=== PATIENT | female | born 1960 | race African-American/Black ===

== ENCOUNTER 2018-08-11 05:52 | Inpatient (IN) ==
--- NOTE | 2018-08-06 17:42 | EKG Report ---
Test Performed on : 08/06/2018 5:16:10 PM Test Reason : PAT Blood Pressure : / mmHG Vent. Rate : 078 BPM Atrial Rate : 078 BPM P-R Int : 186 ms QRS Dur : 078 ms QT Int : 360 ms P-R-T Axes : 054 024 027 degrees QTc Int : 410 ms Normal sinus rhythm. Possible Left atrial enlargement Cannot rule out Anterior infarct , age undetermined Abnormal ECG No previous ECGs available Confirmed by Robson GRAY, Dionicio Green ([id number]) on 08/07/2018 5:09:15 PM
[2018-08-06 17:58] LABS: URINE SOURCE CLEAN CATCH
[2018-08-06 18:02] LABS: BASO# 0.03 X1000 (0.0-0.2); BASO% 0.5 % (0.0-0.8); EOS% 1.6 % (0.0-10.0); HEMATOCRIT 39.3 % (37.0-47.0); HEMOGLOBIN 12.8 g/dL (12.0-16.0); LYMPH# 3.04 X1000 (1.2-3.4); MCH 28.5 PG (27-31); MCHC 32.6 g/dL (33-37); MCV 87.5 FL (81-99); MONO# 0.46 X1000 (0.11-0.59); MONO% 7.3 % (1.7-9.3); MPV 9.9 FL (7.4-10.4); NEUT% 42.6 % (42.2-75.2); PLT 377 X1000 (130-400); RBC 4.49 XMIL (4.2-5.4); RDW 13.1 % (11.5-14.5); WBC 6.33 X1000 (4.8-10.8)
[2018-08-06 18:04] LABS: BILIRUBIN URINE NEGATIVE (NEGATIVE); BLOOD URINE NEGATIVE (NEGATIVE); COLOR YELLOW; GLUCOSE URINE NEGATIVE (NEGATIVE); KETONE URINE NEGATIVE (NEGATIVE); SP GRAVITY URINE 1.025; TURBIDITY URINE CLEAR (CLEAR)
[2018-08-06 18:05] LABS: INR 0.97; LEUKOCYTES URINE SMALL (NEGATIVE); NITRITE URINE NEGATIVE (NEGATIVE); PH URINE 5.5; PROTEIN URINE NEGATIVE (NEGATIVE); PROTIME 13.6 Seconds (11.0-16.0); UROBILINOGEN URINE NORMAL (NORMAL)
[2018-08-06 18:06] LABS: PTT 30.9 Seconds (22.3-41.8)
[2018-08-06 18:07] LABS: UR EPITHELIAL CELLS <10 /HPF (<10); URINE BACTERIA NEGATIVE /HPF; URINE RBC <10 /HPF (<10); URINE WBC <10 /HPF (<10)
[2018-08-06 18:20] LABS: AGAP 12; BUN 20 mg/dL (8-22); CALCIUM 9.7 mg/dL (8.8-10.2); CHLORIDE 99 mmol/L (98-107); COSMO 282; CREATININE 0.8 mg/dL (0.5-0.9); ESTIMATED GFR > 60; GLUCOSE 94 mg/dL (70-104); POTASSIUM 3.6 mmol/L (3.5-5.1); SODIUM 140 mmol/L (136-145); TCO2 29 mmol/L (25-35)
[2018-08-06 18:22] LABS: HEMOGLOBIN A1C 5.8 % (4.8-6.0)
[2018-08-11] MEDS ORDERED: REGLAN ONE (06:14)
[2018-08-11] MEDS ORDERED: COLACE ONE (06:14)
[2018-08-11] MEDS ORDERED: PEPCID ONE (06:14)
[2018-08-11] MEDS ORDERED: KEFZOL 1 GM/D5W 2 GM/100 ML IVPB ONE (06:15)
[2018-08-11] MEDS ORDERED: LR 1,000 ML ONE (06:15)
[2018-08-11] MEDS ORDERED: LYRICA ONE (06:15)
[2018-08-11] MEDS ORDERED: VANCOMYCIN ONE (06:53)
[2018-08-11] MEDS ORDERED: DURAMORPH ONE (06:53)
[2018-08-11] MEDS ORDERED: MARCAINE 0.25% PF ONE (06:53)
[2018-08-11] MEDS ORDERED: TORADOL ONE (06:53)
[2018-08-11] MEDS ORDERED: EXPAREL 1.3% ONE (06:54)
[2018-08-11] MEDS ORDERED: CYKLOKAPRON 1,000 MG/NS 1,000 MG/100 ML IVPB ONE ×2 (06:54→06:55)
[2018-08-11] MEDS ORDERED: SODIUM CHLORIDE 0.9% ONE (06:54)
[2018-08-11] MEDS ORDERED: NEOSPORIN G.U. IRRIGANT ONE (06:55)
[2018-08-11] MEDS ORDERED: DIPRIVAN 1% 500 MG/50 ML BOTTLE ONE (06:56)
[2018-08-11] MEDS ORDERED: DECADRON ONE (06:57)
[2018-08-11] MEDS ORDERED: XYLOCAINE-MPF 2% ONE (06:57)
[2018-08-11] MEDS ORDERED: FENTANYL ONE (06:59)
[2018-08-11] MEDS ORDERED: VERSED ONE (06:59)
[2018-08-11] MEDS ORDERED: OFIRMEV 1000 MG/ISOTONIC SOLN 1,000 MG/100 ML BOTTLE ONE (07:32)
[2018-08-11] MEDS ORDERED: ZOFRAN ONE (07:58)
[2018-08-11] MEDS ORDERED: EPHEDRINE ONE (08:20)
[2018-08-11 08:21] LABS: URINE SOURCE CATH
[2018-08-11 08:24] LABS: BILIRUBIN URINE NEGATIVE (NEGATIVE); BLOOD URINE NEGATIVE (NEGATIVE); COLOR YELLOW; GLUCOSE URINE NEGATIVE (NEGATIVE); KETONE URINE NEGATIVE (NEGATIVE); LEUKOCYTES URINE NEGATIVE (NEGATIVE); NITRITE URINE NEGATIVE (NEGATIVE); PH URINE 5.5; PROTEIN URINE NEGATIVE (NEGATIVE); SP GRAVITY URINE 1.016; TURBIDITY URINE CLEAR (CLEAR); UROBILINOGEN URINE NORMAL (NORMAL)
[2018-08-11 08:47] LABS: UR EPITHELIAL CELLS <10 /HPF (<10); URINE BACTERIA NEGATIVE /HPF; URINE RBC <10 /HPF (<10); URINE WBC <10 /HPF (<10); URINE YEAST PRESENT
[2018-08-11] MEDS ORDERED: NS 1,000 ML ONE (09:57)
[2018-08-11] MEDS ORDERED: ZOFRAN ODT PO PRN (11:00)
[2018-08-11] MEDS ORDERED: MILK OF MAGNESIA PO PRN (11:00)
[2018-08-11] MEDS ORDERED: OXY IR PO PRN ×2 (11:00)
[2018-08-11] MEDS ORDERED: AMBIEN PO PRN (11:00)
[2018-08-11] MEDS ORDERED: MORPHINE IV PRN ×3 (11:00)
--- NOTE | 2018-08-11 13:28 | OPERATIVE NOTE ---
PROCEDURE DATE : 08/11/2018 PREOPERATIVE DIAGNOSIS: Right knee degenerative joint disease. POSTOPERATIVE DIAGNOSIS: Right knee degenerative joint disease. PROCEDURE PERFORMED: Right total knee arthroplasty using [facility] size 6 femoral component, size 6 tibial baseplate, a 13 mm articular insert and a 32 mm patellar component. ANESTHESIA: Spinal. SURGEON: Jd Hook MD MINGLE OPERATOR: Margaret Chandra PA-C. She was present throughout the case, and her assistance was critical for exposure, placement of the implants and closure. The case could not have been completely successfully without her assistance. BLOOD LOSS: Minimal. TOURNIQUET TIME: Approximately 1-1/2 hours. DESCRIPTION OF PROCEDURE: The patient was brought to the operative suite and placed in supine position. After successful administration of general anesthesia, a well-padded tourniquet was placed on the right proximal thigh. Right lower extremity was prepped and draped in usual sterile fashion. Leg was exsanguinated. Tourniquet insufflated to 350 torr. A longitudinal incision was made beginning at the superior pole patella and extended distally to the tibial tuberosity. A medial arthrotomy was then made, and the medial capsule was elevated off of the medial tibial plateau. The ACL, PCL, medial meniscus, and lateral meniscus were excised. A drill was entered in the center of distal femur. Intramedullary guide was placed. Distal cutting block was pinned into place. Distal cut was made with oscillating saw. Marginal osteophytes were removed with a rongeur. Attention was then directed to the tibia. A drill was entered in the center of the tibia. Intramedullary guide was placed. Alignment was checked with drop álvaro referencing off the anterior cortex tibia and the second ray of the foot and taking 3 mm off the low side of the tibia which in this case was laterally. The tibial cutting block was pinned in place. The articular surface of the tibial plateau was removed with oscillating saw. Marginal osteophytes were removed with a rongeur. The knee was taken down into extension. Any residual medial and lateral meniscus were excised. The flexion extension gaps were checked and balanced at 13 mm. We set it at 14 mm, and that made is 23 mm in flexion to account for the posterior condyles of the femoral component. Once this was set and rotation was set, it was pinned into place. The femur was sized to a size 6. A size 6 cutting block was pinned into place, and the anterior cuts, chamfer cuts and posterior condylar cuts were made with oscillating saw. Marginal osteophytes were removed with a rongeur. Box cutting block was pinned into place. Box cut was made with box osteotome and oscillating saw. Posterior condylar osteophytes were removed with a curved osteotome and rongeur. The drill hole for the femur was irrigated with normal saline containing irrigant and then suctioned, and the hole was plugged with a piece of bone from the chamfer of the femur. Attention was directed to the tibia. The tibia was sized to a size 6. Size 6 guide was used with a fin punch. The tibial trial, femoral trial and 14 mm articular insert were placed and taken through a range of motion and found to have excellent alignment, balancing and range of motion. It was slightly tight. Therefore, we decided to place a 13 on the definitive implant. Attention was directed to the patella, and 9 mm of the articular surface of the patella were removed with the oscillating saw. Patella sized to size 32. A size 32 guide was used to drill peg holes. The lateral facet was chamfered 30 to 45 degrees. Patella trial was placed and taken through range of motion. Found have excellent patella tracking. All trials were then removed. The knee was copiously irrigated and dried, being certain all bone debris was removed. The tibial component, femoral component, and patellar component were cemented in place, excess cement being removed with the [place]. Once the cement had hardened, excess cement was again removed with osteotome. The knee was again copiously irrigated and dried, being certain all bone and cement debris removed. The trial articular insert was removed. The knee was copiously infiltrated with Exparel, including posterior capsule, anterior capsule, medial and lateral collateral ligaments, anterior musculature, and subcutaneous tissue. The definitive 13 mm articular surface was then locked into place. A drain was placed, exiting superolaterally and buried in the lateral gutter. The tourniquet was deflated. Hemostasis was obtained with electrocautery. The knee was again copiously irrigated with normal saline containing irrigant and Vashe irrigation. The medial arthrotomy was then closed with a 0 V-Loc and #1 Vicryl, then the skin edge approximated with 2-0 Vicryl. Skin was closed with a Prineo. A sterile dressing was applied. The patient tolerated the procedure well without complication. At the end the procedure, all counts correct x2. The patient was transferred to the recovery room in stable condition. cc: Jd Hook MD [facility]
[2018-08-11] MEDS: ULTRAM PO SCH ×2 (14:50→20:18)
[2018-08-11] MEDS: TYLENOL PO SCH ×3 (14:51→23:46)
[2018-08-11] MEDS: KEFZOL 2 GM/D5W 2 GM/50 ML IVPB IV SCH ×2 (14:57→23:30)
[2018-08-11] MEDS: NS 1,000 ML IV SCH ×2 (14:57→20:19)
[2018-08-11] MEDS ORDERED: KEFZOL 1 GM/D5W 1 GM/50 ML IVPB IV SCH (15:30)
[2018-08-11] MEDS: PERIDEX MT SCH (20:17)
[2018-08-11] MEDS: LYRICA PO SCH (20:17)
[2018-08-11] MEDS: COLACE PO SCH (20:18)
[2018-08-12] MEDS: NS 1,000 ML IV SCH (01:55)
[2018-08-12] MEDS: TYLENOL PO SCH ×2 (03:27→09:27)
[2018-08-12] MEDS: ULTRAM PO SCH ×2 (03:28→09:28)
[2018-08-12 06:26] LABS: AGAP 10; BUN 13 mg/dL (8-22); CALCIUM 8.8 mg/dL (8.8-10.2); CHLORIDE 103 mmol/L (98-107); COSMO 283; CREATININE 0.7 mg/dL (0.5-0.9); ESTIMATED GFR > 60; GLUCOSE 121 mg/dL (70-104); POTASSIUM 4.7 mmol/L (3.5-5.1); SODIUM 141 mmol/L (136-145); TCO2 28 mmol/L (25-35)
[2018-08-12 07:27] LABS: HEMATOCRIT 32.7 % (37.0-47.0); HEMOGLOBIN 10.4 g/dL (12.0-16.0)
[2018-08-12] MEDS ORDERED: DECADRON IV ONE (09:00)
[2018-08-12] MEDS ORDERED: PEPCID PO SCH (09:00)
[2018-08-12] MEDS ORDERED: ASPIRIN PO SCH (09:00)
[2018-08-12] MEDS ORDERED: HYZAAR 50/12.5 MG PO SCH (09:00)
[2018-08-12] MEDS ORDERED: FERROUS SULFATE PO SCH (09:00)
[2018-08-12] MEDS ORDERED: MOBIC PO SCH (09:00)
[2018-08-12] MEDS: COLACE PO SCH (09:27)
[2018-08-12] MEDS: PERIDEX MT SCH (09:27)
[2018-08-12] MEDS: LYRICA PO SCH (09:27)
[2018-08-12 11:42] VITALS: BP 119/58
--- NOTE | 2018-08-12 14:42 | DISCHARGE SUMMARY ---
ADMISSION DATE: 08/11/2018 DISCHARGE DATE: 08/12/2018 DISCHARGE DIAGNOSIS: Right knee degenerative joint disease status post right total knee arthroplasty. DISCHARGE MEDICATIONS: See discharge med list. DISPOSITION: The patient discharged home with home health physical therapy. Instructed to return for any signs of infection, deep venous thrombosis. Instructed to return to see Dr. Hook next . HOSPITAL COURSE: On the day of admission, patient underwent a right total knee arthroplasty. Her postoperative course was unremarkable at discharge. She is afebrile, tolerating regular diet, ambulating well with physical therapy. Her wound is clean, dry, intact without sign of infection. She is discharged home in stable condition. Instructed to follow up as described above. cc: Jd Hook MD
[2018-08-17] MEDS ORDERED: VITAMIN D PO SCH (12:30)
== END 2018-08-12 12:48 | disposition home health service (06) | DRG 470 ==
LOC: 4N 05:52 → OR 05:52 → OBSVTOIN 07:32
PROVIDERS: ADMIT Orthopaedic Surgery; ATTEND Orthopaedic Surgery
CPT/HCPCS: 80048; 81001; 82040; 83036; 85014; 85018; 85025; 85610; 85730; 86850; 86900; 86901; 88305; 88311; 93005; 93010; 94761; 94799; 97110; 97116; 97162; 97530; A9270; C9290; J0131; J0690; J1100; J1885; J2250; J2274; J2275; J2405; J3010; J3370; J7030; J7120; Q9974; S0020